=== PATIENT | female | born 1960 | race Hispanic/Latino ===

== ENCOUNTER 2018-11-14 09:33 | Emergency (ER) | payer SELFPAY ==
--- NOTE | 2018-11-14 10:07 | RAD ---
RIGHT WRIST 3 VIEWS: Date: 11/14/18 HISTORY: Right wrist pain following an injury from a fall. FINDINGS: Heterogeneous bony demineralization and arthrosis and degenerative change. There is an irregular hair line lucency through the distal radius and ulnar styloid process base, evidence for nondisplaced frac tures. There is some chondrocalcinosis. IMPRESSION: Hairline nondisplaced transverse fracture through the distal radius and ulnar styloid process nondisp laced fracture. POS: [facility]
--- NOTE | 2018-11-14 10:09 | RAD ---
RIGHT HAND 3 VIEWS: Date: 11/14/18 HISTORY: Right wrist and hand pain following an injury. FINDINGS: Arthrosis and degenerative changes are noted of the hand and wrist, particularly the interphalangeal joints of the second and third fingers. Again noted is a hairline nondisplaced fracture through the d istal radius and the base of the ulnar styloid process. IMPRESSION: Nondisplaced distal radial and ulnar styloid process fractures. Arthrosis and degenerative changes of the hand. POS: [facility]
[2018-11-14] MEDS ORDERED: Ibuprofen 800 MG TAB ONE (10:35)
== END 2018-11-14 10:45 | disposition home or self-care (01) ==
LOC: ERS 09:33
DX: S52.614A Nondisplaced fracture of right ulna styloid process, initial encounter for closed fracture (principal); S52.501A Unspecified fracture of the lower end of right radius, initial encounter for closed fracture; E11.9 Type 2 diabetes mellitus without complications; W18.30XA Fall on same level, unspecified, initial encounter
CPT/HCPCS: 29125

== ENCOUNTER 2021-07-18 10:00 | Outpatient (CLI) | payer OTHER | END 2021-07-18 10:01 | disposition home or self-care (01) | LOC: BICRAD 10:00 | PROVIDERS: ATTEND Family Medicine | DX: M54.9 Dorsalgia, unspecified (principal); M47.816 Spondylosis without myelopathy or radiculopathy, lumbar region | CPT/HCPCS: 72100 ==

== ENCOUNTER 2022-02-26 10:05 | Outpatient (CLI) | payer OTHER | END 2022-02-26 10:06 | disposition home or self-care (01) | LOC: BICRAD 10:05 | PROVIDERS: ATTEND Family Medicine | DX: M25.562 Pain in left knee (principal); M17.12 Unilateral primary osteoarthritis, left knee ==